=== PATIENT | male | born 1940 | race Caucasian/White ===

== ENCOUNTER 2016-10-03 12:39 | Day surgery (SDC) | payer MEDICARE, OTHER ==
[~2016-10-03] VITALS: Ht 175.3 cm; Wt 103.5 kg
[~2016-10-03 12:39] MED LIST: ALTACE 2.5MG T2.5 MG PO; ASPIRIN 81M81 MG/TA2 PO; FOLIC ACID0.4 MG PO; IRON TABLETS325 MG PO; LEVAQUIN 750MG750 M1 PO; LIPITOR 80MG80 MG PO; MULTIPLE VITAMI1 CAP PO; TOPROL XL 25MG25 MG PO; VITAMIN C500 MG PO
[2016-10-03 13:44] VITALS: BP 125/79; PULSE 60; TEMP 97.4
[2016-10-03] MEDS ORDERED: ALTACE 10MG TAB10 MG PO (13:53)
[2016-10-03] MEDS ORDERED: NORVASC 5MG5 MG/TAB PO (13:54)
[2016-10-03] MEDS ORDERED: LASIX 20MG TABL20 MG PO (13:54)
[2016-10-03] MEDS ORDERED: GLUCOPHAGE500 MG/TAB PO (13:55)
[2016-10-03] MEDS ORDERED: CALCIUM 600/VIT1 CAP PO (13:56)
[2016-10-03] MEDS ORDERED: COLACE 100100 MG/CAP PO (13:57)
[2016-10-03] MEDS ORDERED: PRILOSEC10 MG PO (13:57)
[2016-10-03] MEDS ORDERED: PRESERVISION1 SGL PO (13:57)
[2016-10-03 16:35] VITALS: BP 127/79; PULSE 51; TEMP 97.2
[2016-10-03 16:50] VITALS: BP 118/68; PULSE 73
== END 2016-10-03 17:21 | disposition home or self-care (01) ==
LOC: SDCO 12:39
DX: Z86.010 Personal history of colon polyps (principal); D12.7 Benign neoplasm of rectosigmoid junction; K63.5 Polyp of colon; K57.30 Diverticulosis of large intestine without perforation or abscess without bleeding
CPT/HCPCS: OP; J2250; J3010; J7030